=== PATIENT | female | born 1945 | race Caucasian/White ===

== ENCOUNTER 2016-10-15 08:23 | Outpatient (RCR) | payer MEDICARE, BC ==
[2013-10-21 11:46] VITALS: BP 149/80
[~2016-10-15 08:23] MED LIST: BP Medication
== END 2016-11-13 15:04 | disposition home or self-care (01) ==
LOC: PT 08:23
DX: M54.9 Dorsalgia, unspecified (principal); M25.559 Pain in unspecified hip

== ENCOUNTER → 2016-10-27 | Outpatient (CLI) | payer MEDICARE, BC ==
[2013-10-21 11:46] VITALS: BP 149/80
== END ==
LOC: LAB 08:28
DX: N39.0 Urinary tract infection, site not specified (principal)

== ENCOUNTER → 2017-02-15 | Outpatient (CLI) | payer MEDICARE, BC ==
[2013-10-21 11:46] VITALS: BP 149/80
== END ==
LOC: RAD 16:37
DX: S63.501A Unspecified sprain of right wrist, initial encounter (principal); X58.XXXA Exposure to other specified factors, initial encounter

== ENCOUNTER 2017-05-17 08:30 | Outpatient (RCR) | payer MEDICARE, BC ==
[2013-10-21 11:46] VITALS: BP 149/80
== END 2017-05-17 09:00 | disposition home or self-care (01) ==
LOC: PT 08:30
DX: S52.501D Unspecified fracture of the lower end of right radius, subsequent encounter for closed fracture with routine healing (principal); X58.XXXD Exposure to other specified factors, subsequent encounter; W01.0XXD Fall on same level from slipping, tripping and stumbling without subsequent striking against object, subsequent encounter
CPT/HCPCS: G8978-GP; G8979-GP

== ENCOUNTER → 2017-06-21 | Outpatient (CLI) | payer MEDICARE, BC ==
[2013-10-21 11:46] VITALS: BP 149/80
[2017-06-21 09:53] LABS: ALBUMIN 3.9 g/dL (3.5-5.0); BUN/CREATININE RATIO 20.4 (6.0-26.0); CALCIUM 9.1 mg/dL (8.4-10.2); POTASSIUM 4.1 mmol/L (3.6-5.0); TOTAL BILIRUBIN 0.7 mg/dL (0.2-1.3)
== END ==
LOC: LAB 09:20
PROVIDERS: Family Medicine
DX: I10 Essential (primary) hypertension (principal); E78.00 Pure hypercholesterolemia, unspecified

== ENCOUNTER → 2017-07-01 | Outpatient (CLI) | payer MEDICARE, BC ==
[2013-10-21 11:46] VITALS: BP 149/80
[~2017-07-01] VITALS: Ht 83.8 cm; Wt 76.4 kg
[~2017-07-01] MED LIST changes: +CRANBERRY200 MG; +ESTRACE0.1 MG/GM TOP; +HYDROCHLOROTH12.5 M2 PO; +LISINOPRIL40 MG PO; +OMEGA-31000 M1 PO
== END ==
LOC: AMSURD 09:50
DX: Z00.00 Encounter for general adult medical examination without abnormal findings (principal); I10 Essential (primary) hypertension; R32 Unspecified urinary incontinence; N30.20 Other chronic cystitis without hematuria; E78.00 Pure hypercholesterolemia, unspecified; R15.9 Full incontinence of feces; M19.90 Unspecified osteoarthritis, unspecified site; Z13.6 Encounter for screening for cardiovascular disorders

== ENCOUNTER → 2017-11-12 | Outpatient (CLI) | payer MEDICARE, BC ==
[2013-10-21 11:46] VITALS: BP 149/80
== END ==
LOC: RAD 15:49
DX: J98.4 Other disorders of lung (principal); Z88.1 Allergy status to other antibiotic agents

== ENCOUNTER → 2018-03-02 | Outpatient (CLI) | payer MEDICARE, BC ==
[2013-10-21 11:46] VITALS: BP 149/80
== END ==
LOC: RAD 09:19
DX: M47.895 Other spondylosis, thoracolumbar region (principal); Z97.8 Presence of other specified devices

== ENCOUNTER 2018-05-05 08:30 | Outpatient (RCR) | payer MEDICARE, BC ==
[2013-10-21 11:46] VITALS: BP 149/80
== END 2018-05-05 09:00 | disposition home or self-care (01) ==
LOC: PT 08:30
DX: M54.42 Lumbago with sciatica, left side (principal); R20.2 Paresthesia of skin; R20.0 Anesthesia of skin; M79.605 Pain in left leg
CPT/HCPCS: G8978-GP; G8979-GP

== ENCOUNTER → 2018-05-23 | Outpatient (CLI) | payer MEDICARE, BC ==
[2013-10-21 11:46] VITALS: BP 149/80
[2018-05-23 10:18] LABS: URINE APPEARANCE CLOUDY; URINE BILIRUBIN NEGATIVE (NEGATIVE); URINE BLOOD 50 ery/uL (NEGATIVE); URINE COLOR YELLOW; URINE GLUCOSE NEGATIVE (NEGATIVE); URINE KETONE NEGATIVE (NEGATIVE); URINE LEUKOCYTE ESTERASE 1+ (NEGATIVE); URINE MUCUS PRESENT (NOT PRESENT); URINE NITRATE POSITIVE (NEGATIVE); URINE PROTEIN(semi-quant) TRACE mg/dL (NEGATIVE); URINE UROBILINOGEN NORMAL (NORMAL); URINE WBC >50 /hpf (0-3)
== END ==
LOC: LAB 08:56
PROVIDERS: Nurse Practitioner
DX: R35.0 Frequency of micturition (principal); R30.0 Dysuria

== ENCOUNTER → 2018-08-04 | Outpatient (CLI) | payer MEDICARE, BC ==
[2013-10-21 11:46] VITALS: BP 149/80
[2018-08-04 08:26] LABS: CALCIUM 9.3 mg/dL (8.4-10.2); POTASSIUM 4.2 mmol/L (3.6-5.0); TOTAL BILIRUBIN 0.4 mg/dL (0.2-1.3); TOTAL PROTEIN 6.8 g/dL (6.3-8.2)
== END ==
LOC: LAB 08:03
PROVIDERS: Family Medicine
DX: I10 Essential (primary) hypertension (principal); E78.00 Pure hypercholesterolemia, unspecified

== ENCOUNTER 2018-09-12 08:30 | Outpatient (RCR) | payer MEDICARE, BC ==
[2013-10-21 11:46] VITALS: BP 149/80
== END 2018-09-12 09:00 | disposition home or self-care (01) ==
LOC: PT 08:30
DX: M79.662 Pain in left lower leg (principal); R20.0 Anesthesia of skin; R20.2 Paresthesia of skin; M19.90 Unspecified osteoarthritis, unspecified site; Z87.39 Personal history of other diseases of the musculoskeletal system and connective tissue
CPT/HCPCS: G8978-GP; G8979-GP

== ENCOUNTER → 2018-10-06 | Outpatient (CLI) | payer MEDICARE, BC ==
[2013-10-21 11:46] VITALS: BP 149/80
== END ==
LOC: RAD 09:20
DX: M48.061 Spinal stenosis, lumbar region without neurogenic claudication (principal); M51.16 Intervertebral disc disorders with radiculopathy, lumbar region

== ENCOUNTER → 2018-11-23 | Outpatient (CLI) | payer MEDICARE, BC ==
[2013-10-21 11:46] VITALS: BP 149/80
[2018-11-23 12:25] LABS: URINE APPEARANCE CLOUDY; URINE BILIRUBIN NEGATIVE (NEGATIVE); URINE BLOOD 50 ery/uL (NEGATIVE); URINE COLOR YELLOW; URINE GLUCOSE NEGATIVE (NEGATIVE); URINE KETONE NEGATIVE (NEGATIVE); URINE LEUKOCYTE ESTERASE 2+ (NEGATIVE); URINE NITRATE POSITIVE (NEGATIVE); URINE PROTEIN(semi-quant) 1+ mg/dL (NEGATIVE); URINE UROBILINOGEN NORMAL (NORMAL); URINE WBC >50 /hpf (0-3)
== END ==
LOC: LAB 11:43
PROVIDERS: Nurse Practitioner
DX: R35.0 Frequency of micturition (principal); R30.0 Dysuria

== ENCOUNTER → 2018-12-02 | Outpatient (CLI) | payer MEDICARE, BC ==
[2013-10-21 11:46] VITALS: BP 149/80
[~2018-12-02] MED LIST changes: +HYDROCHLOROTHIA1 T15 PO; +LOW DOSE ASPIRI81 MG PO
[2018-12-02 09:47] LABS: URINE APPEARANCE CLOUDY; URINE BILIRUBIN NEGATIVE (NEGATIVE); URINE BLOOD 50 ery/uL (NEGATIVE); URINE COLOR YELLOW; URINE GLUCOSE NEGATIVE (NEGATIVE); URINE KETONE NEGATIVE (NEGATIVE); URINE LEUKOCYTE ESTERASE 2+ (NEGATIVE); URINE NITRATE POSITIVE (NEGATIVE); URINE PROTEIN(semi-quant) TRACE mg/dL (NEGATIVE); URINE UROBILINOGEN NORMAL (NORMAL); URINE WBC >50 /hpf (0-3)
== END ==
LOC: LAB 09:04
PROVIDERS: Nurse Practitioner
DX: N39.0 Urinary tract infection, site not specified (principal)

== ENCOUNTER 2018-12-08 16:42 | Outpatient (RCR) | payer MEDICARE, BC ==
[2018-12-06 17:08] VITALS: BP 130/79
[2018-12-06 18:05] VITALS: BP 119/72
[2018-12-07 16:59] VITALS: BP 119/73
[2018-12-07 18:00] VITALS: BP 114/67
[~2018-12-08] VITALS: Ht 157.5 cm; Wt 72.7 kg
[2018-12-08 17:07] VITALS: BP 139/65
[2018-12-08 18:17] VITALS: BP 140/70
== END 2018-12-08 18:00 | disposition home or self-care (01) ==
LOC: AMSURD 16:42
DX: N30.00 Acute cystitis without hematuria (principal)
CPT/HCPCS: J1580

== ENCOUNTER 2019-01-24 08:30 | Outpatient (RCR) | payer MEDICARE, BC | END 2019-01-24 09:00 | disposition still patient (30) | LOC: PT 08:30 | DX: M47.26 Other spondylosis with radiculopathy, lumbar region (principal); M47.817 Spondylosis without myelopathy or radiculopathy, lumbosacral region; M53.3 Sacrococcygeal disorders, not elsewhere classified ==

== ENCOUNTER → 2019-08-02 | Outpatient (CLI) | payer MEDICARE ==
[2019-08-02 11:14] LABS: POTASSIUM 3.9 mmol/L (3.5-5.1)
[2019-08-02 11:15] LABS: ALBUMIN 4.1 g/dL (3.4-4.8)
[2019-08-02 11:16] LABS: CALCIUM 9.8 mg/dL (8.3-10.5)
[2019-08-02 11:17] LABS: TOTAL PROTEIN 7.1 g/dL (6.2-8.1)
[2019-08-02 11:19] LABS: TOTAL BILIRUBIN 0.6 mg/dL (0.2-1.2)
== END ==
LOC: LAB 10:52
PROVIDERS: Family Medicine
DX: E78.00 Pure hypercholesterolemia, unspecified (principal); I10 Essential (primary) hypertension

== ENCOUNTER → 2020-08-23 | Outpatient (CLI) | payer MEDICARE ==
[2020-08-23 08:15] LABS: ALBUMIN 3.9 g/dL (3.4-4.8); POTASSIUM 3.5 mmol/L (3.5-5.1)
[2020-08-23 08:16] LABS: CALCIUM 8.9 mg/dL (8.3-10.5)
[2020-08-23 08:17] LABS: TOTAL PROTEIN 6.9 g/dL (6.2-8.1)
[2020-08-23 08:19] LABS: TOTAL BILIRUBIN 0.5 mg/dL (0.2-1.2)
== END ==
LOC: LAB 07:40
PROVIDERS: Family Medicine
DX: E78.00 Pure hypercholesterolemia, unspecified (principal)

== ENCOUNTER → 2020-11-26 | Outpatient (CLI) | payer MEDICARE | LOC: LAB 07:52 | DX: E78.00 Pure hypercholesterolemia, unspecified (principal) ==

== ENCOUNTER → 2021-02-25 | Outpatient (CLI) | payer MEDICARE ==
[2021-02-25 10:17] LABS: ALBUMIN 3.9 g/dL (3.4-4.8)
[2021-02-25 10:19] LABS: TOTAL PROTEIN 6.6 g/dL (6.2-8.1)
[2021-02-25 10:21] LABS: TOTAL BILIRUBIN 0.5 mg/dL (0.2-1.2)
[2021-02-25 10:25] LABS: DIRECT BILIRUBIN 0.2 mg/dL (0.0-0.5)
== END ==
LOC: LAB 09:35
PROVIDERS: Family Medicine
DX: E78.00 Pure hypercholesterolemia, unspecified (principal)

== ENCOUNTER → 2021-10-13 | Outpatient (CLI) | payer MEDICARE | LOC: RAD 14:37 | DX: M17.11 Unilateral primary osteoarthritis, right knee (principal) ==

== ENCOUNTER 2021-10-27 10:56 | Outpatient (RCR) | payer MEDICARE | END 2021-11-15 | disposition still patient (30) | LOC: PT | DX: M17.11 Unilateral primary osteoarthritis, right knee (principal) ==

== ENCOUNTER 2021-12-12 13:30 | Outpatient (RCR) | payer MEDICARE | END 2021-12-16 | disposition home or self-care (01) | LOC: PT | DX: M17.11 Unilateral primary osteoarthritis, right knee (principal) ==

== ENCOUNTER 2022-01-09 08:00 | Outpatient (RCR) | payer MEDICARE | END 2022-01-15 | disposition home or self-care (01) | LOC: PT | DX: M17.9 Osteoarthritis of knee, unspecified (principal) ==

== ENCOUNTER → 2022-03-13 | Outpatient (CLI) | payer MEDICARE ==
[2022-03-13 15:57] LABS: ALBUMIN 3.7 g/dL (3.4-4.8); POTASSIUM 3.9 mmol/L (3.5-5.1)
[2022-03-13 15:59] LABS: CALCIUM 9.1 mg/dL (8.3-10.5)
[2022-03-13 16:00] LABS: TOTAL PROTEIN 6.5 g/dL (6.2-8.1)
[2022-03-13 16:02] LABS: TOTAL BILIRUBIN 0.4 mg/dL (0.2-1.2)
== END ==
LOC: LAB 08:05
PROVIDERS: Family Medicine
DX: E78.00 Pure hypercholesterolemia, unspecified (principal); I10 Essential (primary) hypertension